=== PATIENT | female | born 1985 | race Caucasian/White ===

== ENCOUNTER 2018-04-25 19:51 | Emergency (ER) | payer MEDICAID ==
[2018-04-25 22:17] LABS: ADD MAN DIFF? NO
[2018-04-25 22:18] LABS: BASOPHILS % 0.3 % (0.0-2.0); EOSINOPHILS # 0.1 10^3/ul (0.0-0.5); EOSINOPHILS % 0.8 % (0.0-7.0); HEMATOCRIT 37.4 % (37.0-47.0); HEMOGLOBIN 12.4 g/dl (12.0-16.0); LYMPHOCYTES % 17.1 % (15.0-51.0); MEAN CORPUSCULAR HEMOGLOBIN 30.3 pg (29.0-33.0); MEAN CORPUSCULAR HGB CONC 33.2 g/dl (32.0-37.0); MEAN CORPUSCULAR VOLUME 91.4 fl (82.0-101.0); MEAN PLATELET VOLUME 11.1 fl (7.4-10.4); MONOCYTE # 0.6 10^3/ul (0.3-0.9); MONOCYTES % 5.1 % (0.0-11.0); NEUTROPHIL # 8.9 10^3/ul (1.6-7.5); NEUTROPHILS % 76.2 % (39.0-77.0); PLATELET COUNT 426 10^3/UL (140-415); RED BLOOD COUNT 4.09 10^6/ul (4.20-5.40)
[2018-04-25 22:18] LABS: WHITE BLOOD COUNT 11.6 10^3/ul (4.8-10.8)
[2018-04-25 22:37] LABS: ALANINE AMINOTRANSFERASE 15 IU/L (13-69); ALBUMIN/GLOBULIN RATIO 1.08; ALKALINE PHOSPHATASE 73 IU/L (42-121); ANION GAP 14 (5-13); ASPARTATE AMINO TRANSFERASE 18 IU/L (15-46); BLOOD UREA NITROGEN 6 mg/dl (7-20); CARBON DIOXIDE 22 mmol/L (21-31); CHLORIDE 104 mmol/L (97-110); CREATININE 0.47 mg/dl (0.44-1.00); Estimated GFR > 60 mL/min (>60); GLUCOSE 122 mg/dl (70-220); POTASSIUM 4.1 mmol/L (3.5-5.1); SODIUM 140 mmol/L (135-144); TOTAL PROTEIN 7.7 g/dl (6.1-8.1)
[2018-04-25 22:50] LABS: ADD UMIC YES; UR ASCORBIC ACID NEGATIVE (NEGATIVE); UR BACTERIA FEW /HPF (NONE SEEN); UR BILIRUBIN (Dip) NEGATIVE (NEGATIVE); UR BLOOD (Dip) 1+ mg/dL (NEGATIVE); UR CLARITY SLIGHTLY CLOUDY (CLEAR); UR COLOR YELLOW (YELLOW); UR GLUCOSE (Dip) NEGATIVE (NEGATIVE); UR KETONES (Dip) TRACE mg/dL (NEGATIVE); UR LEUKOCYTE ESTERASE (Dip) 3+ Leu/ul (NEGATIVE); UR NITRITE (Dip) NEGATIVE (NEGATIVE); UR RBC 7 /HPF (0-5); UR SPECIFIC GRAVITY (Dip) 1.015 (1.003-1.030); UR SQUAMOUS EPITHELIAL CELL FEW /HPF (FEW); UR TOTAL PROTEIN (Dip) NEGATIVE (NEGATIVE); UR UROBILINOGEN (Dip) NEGATIVE (NEGATIVE); UR WBC 5 /HPF (0-5)
== END 2018-04-26 00:29 | disposition home or self-care (01) ==
LOC: FTE 04-26 00:29
DX: O23.41 Unspecified infection of urinary tract in pregnancy, first trimester (principal); R10.2 Pelvic and perineal pain; Z3A.14 14 weeks gestation of pregnancy
CPT/HCPCS: 36415; 76805; 80053; 81001; 85025; 86900; 86901; 87086; 99284-25

== ENCOUNTER 2018-05-19 16:00 | Emergency (ER) | payer MEDICAID | END 2018-05-19 20:07 | disposition home or self-care (01) | LOC: FTE 16:00 | DX: O99.612 Diseases of the digestive system complicating pregnancy, second trimester (principal); K59.00 Constipation, unspecified; Z3A.17 17 weeks gestation of pregnancy | CPT/HCPCS: 99282; Z7502 ==

== ENCOUNTER 2018-06-22 15:52 | Outpatient (CLI) | payer MEDICAID ==
[2018-06-22 17:41] LABS: ADD UMIC YES; UR ASCORBIC ACID NEGATIVE (NEGATIVE); UR BACTERIA FEW /HPF (NONE SEEN); UR BILIRUBIN (Dip) NEGATIVE (NEGATIVE); UR BLOOD (Dip) 1+ mg/dL (NEGATIVE); UR CLARITY CLEAR (CLEAR); UR COLOR STRAW (YELLOW); UR GLUCOSE (Dip) NEGATIVE (NEGATIVE); UR KETONES (Dip) NEGATIVE (NEGATIVE); UR LEUKOCYTE ESTERASE (Dip) 3+ Leu/ul (NEGATIVE); UR NITRITE (Dip) NEGATIVE (NEGATIVE); UR RBC 6 /HPF (0-5); UR SPECIFIC GRAVITY (Dip) 1.003 (1.003-1.030); UR SQUAMOUS EPITHELIAL CELL FEW /HPF (FEW); UR TOTAL PROTEIN (Dip) NEGATIVE (NEGATIVE); UR UROBILINOGEN (Dip) NEGATIVE (NEGATIVE); UR WBC 1 /HPF (0-5)
== END 2018-06-22 21:15 | disposition home or self-care (01) ==
LOC: OBT 15:52 → L-D 15:53 → OBT 21:15
DX: O26.892 Other specified pregnancy related conditions, second trimester (principal); Z3A.22 22 weeks gestation of pregnancy; R10.2 Pelvic and perineal pain
CPT/HCPCS: 76815; 76817; 81001; 87086

== ENCOUNTER 2018-10-07 15:48 | Inpatient (IN) | payer MEDICAID ==
[2018-10-07 16:29] LABS: ADD MAN DIFF? NO
[2018-10-07 16:33] LABS: CREATININE,URINE RANDOM 54.68 mg/dl (20-320); PROTEIN/CREAT RATIO 0.67 RATIO
[2018-10-07 16:34] LABS: WHITE BLOOD COUNT 6.8 10^3/ul (4.8-10.8)
[2018-10-07 16:34] LABS: ABNORMAL IP MESSAGE 1; BASOPHILS % 0.1 % (0.0-2.0); EOSINOPHILS % 0.4 % (0.0-7.0); HEMATOCRIT 33.6 % (37.0-47.0); HEMOGLOBIN 11.1 g/dl (12.0-16.0); LYMPHOCYTES # 1.1 10^3/ul (0.8-2.9); LYMPHOCYTES % 16.4 % (15.0-51.0); MEAN CORPUSCULAR HEMOGLOBIN 28.8 pg (29.0-33.0); MEAN CORPUSCULAR VOLUME 87.3 fl (82.0-101.0); MEAN PLATELET VOLUME 13.1 fl (7.4-10.4); MONOCYTE # 0.5 10^3/ul (0.3-0.9); MONOCYTES % 7.9 % (0.0-11.0); NEUTROPHIL # 5.1 10^3/ul (1.6-7.5); NEUTROPHILS % 74.6 % (39.0-77.0); PLATELET COUNT 300 10^3/UL (140-415); RED BLOOD COUNT 3.85 10^6/ul (4.20-5.40)
[2018-10-07 16:35] LABS: POSITIVE DIFF @See below
[2018-10-07 16:51] LABS: ALANINE AMINOTRANSFERASE 14 IU/L (13-69); ALKALINE PHOSPHATASE 177 IU/L (42-121); ANION GAP 7 (5-13); ASPARTATE AMINO TRANSFERASE 20 IU/L (15-46); BILIRUBIN,INDIRECT 0.2 mg/dl (0-1.1); BILIRUBIN,TOTAL 0.2 mg/dl (0.2-1.3); BLOOD UREA NITROGEN 9 mg/dl (7-20); CALCIUM 8.7 mg/dl (8.4-10.2); CARBON DIOXIDE 18 mmol/L (21-31); CHLORIDE 113 mmol/L (97-110); CREATININE 0.49 mg/dl (0.44-1.00); Estimated GFR > 60 mL/min (>60); GLUCOSE 139 mg/dl (70-220); LACTATE DEHYDROGENASE 413 IU/L (313-618); POTASSIUM 3.9 mmol/L (3.5-5.1); SODIUM 138 mmol/L (135-144); TOTAL PROTEIN 6.3 g/dl (6.1-8.1); URIC ACID 4.2 mg/dl (3.1-7.9)
[2018-10-07 17:57] LABS: INR 0.95; PROTIME 12.8 Sec (11.9-14.9)
[2018-10-07 17:59] LABS: PARTIAL THROMBOPLASTIN TIME 27.7 Sec (23.0-35.0)
[2018-10-07] MEDS ORDERED: MISOPROSTOL 200 MCG TAB PR (18:00)
[2018-10-07] MEDS ORDERED: CARBOPROST 250 MCG INJ IM (18:00)
[2018-10-07] MEDS ORDERED: AZITHROMYCIN 500MG/NS (PMX) 250 ML IV (18:00)
[2018-10-07] MEDS ORDERED: OXYTOCIN 30 UNITS/LR 500 ML IV (18:00)
[2018-10-07] MEDS ORDERED: METHYLERGONOVINE 0.2 MG INJ IM (18:00)
[2018-10-07 18:31] LABS: HEPATITIS B SURFACE ANTIGEN NEGATIVE (NEGATIVE)
[2018-10-07] MEDS: LACTATED RINGER'S 1,000 ML IV ×2 (18:39→19:24)
[2018-10-07] MEDS: CEFAZOLIN 2 GM/50 ML (PMX) 50 ML IVPB (19:24)
[2018-10-07] MEDS ORDERED: ONDANSETRON 4 MG INJ (20:01)
[2018-10-07] MEDS ORDERED: DEXAMETHASONE 4 MG/ML 1 ML INJ ×2 (20:01)
[2018-10-07] MEDS ORDERED: morphine SULFATE/PF (10 MG/10 ML) INJ (20:04)
[2018-10-07] MEDS ORDERED: PHENYLephrine (100 MCG/ML) 10ML SYG (20:21)
[2018-10-07] MEDS ORDERED: MIDAZOLAM 1 MG/ML 2 ML INJ (20:49)
[2018-10-07] MEDS ORDERED: NALOXONE (0.4 MG/ML) INJ IV (21:00)
[2018-10-07] MEDS ORDERED: ZOLPIDEM 5 MG TAB PO (21:00)
[2018-10-07] MEDS ORDERED: ONDANSETRON 4 MG INJ IV (21:00)
[2018-10-07] MEDS ORDERED: HYDROmorphONE 0.5 MG/0.5 ML SYG IV ×2 (21:00)
[2018-10-07] MEDS: KETOROLAC 30 MG INJ IV (22:02)
[2018-10-07] MEDS: OXYTOCIN 30 UNITS/LR 500 ML IV (22:16)
[2018-10-08] MEDS: DEXTROSE 5%-LR 1,000 ML IV (01:36)
[2018-10-08] MEDS ORDERED: MAGNESIUM HYDROXIDE 30ML CUP PO (02:00)
[2018-10-08] MEDS ORDERED: METHYLERGONOVINE 0.2 MG INJ IM (02:00)
[2018-10-08] MEDS ORDERED: METHYLERGONOVINE 0.2 MG TAB PO (02:00)
[2018-10-08] MEDS ORDERED: OXYTOCIN 30 UNITS/LR 500 ML IV (02:00)
[2018-10-08] MEDS ORDERED: LANOLIN HPA 1 PKT TOP (02:00)
[2018-10-08] MEDS ORDERED: MISOPROSTOL 200 MCG TAB PR (02:00)
[2018-10-08] MEDS ORDERED: CARBOPROST 250 MCG INJ IM (02:00)
[2018-10-08] MEDS: OXYTOCIN 30 UNITS/LR 500 ML IV (02:23)
[2018-10-08] MEDS: DIPHENHYDRAMINE 50 MG INJ IV ×2 (04:32→14:53)
[2018-10-08] MEDS: KETOROLAC 30 MG INJ IV ×2 (06:14→13:55)
[2018-10-08] MEDS: ACCU-CHEK XX ×4 (07:35→21:15)
[2018-10-08 08:04] LABS: ADD MAN DIFF? NO
[2018-10-08 08:20] LABS: WHITE BLOOD COUNT 14.3 10^3/ul (4.8-10.8)
[2018-10-08 08:21] LABS: ABNORMAL IP MESSAGE 1; BASOPHILS % 0.1 % (0.0-2.0); HEMATOCRIT 30.5 % (37.0-47.0); LYMPHOCYTES # 1.2 10^3/ul (0.8-2.9); LYMPHOCYTES % 8.6 % (15.0-51.0); MEAN CORPUSCULAR HEMOGLOBIN 28.7 pg (29.0-33.0); MEAN CORPUSCULAR HGB CONC 32.8 g/dl (32.0-37.0); MEAN CORPUSCULAR VOLUME 87.4 fl (82.0-101.0); MEAN PLATELET VOLUME 13.5 fl (7.4-10.4); MONOCYTE # 0.8 10^3/ul (0.3-0.9); MONOCYTES % 5.4 % (0.0-11.0); NEUTROPHIL # 12.2 10^3/ul (1.6-7.5); NEUTROPHILS % 85.3 % (39.0-77.0); PLATELET COUNT 309 10^3/UL (140-415); RED BLOOD COUNT 3.49 10^6/ul (4.20-5.40); RED CELL DISTRIBUTION WIDTH 13.6 % (11.5-14.5)
[2018-10-08 08:22] LABS: POSITIVE DIFF @See below
[2018-10-08] MEDS: SENNA/DOCUSATE NA (8.6MG/50MG) TAB PO ×2 (08:37→20:35)
[2018-10-08] MEDS: metFORMIN (XR) 500 MG TAB PO ×2 (08:38→21:16)
[2018-10-08] MEDS ORDERED: DIPHTH/TET/ACEL PERTUSS (ADULT) 0.5 ML VIAL IM* (11:00)
[2018-10-08] MEDS: LACTATED RINGER'S 1,000 ML IV ×2 (12:39→20:30)
[2018-10-08] MEDS: HYDROCODONE/APAP (5/325) TAB PO ×2 (20:35→22:27)
[2018-10-08 22:27] LABS: RAPID PLASMA REAGIN NONREACTIVE (NR)
[2018-10-08] MEDS: IBUPROFEN 800 MG TAB PO (22:27)
[2018-10-09] MEDS: LACTATED RINGER'S 1,000 ML IV (04:30)
[2018-10-09] MEDS: IBUPROFEN 800 MG TAB PO ×3 (05:49→22:12)
[2018-10-09] MEDS: HYDROCODONE/APAP (5/325) TAB PO ×3 (05:49→22:12)
[2018-10-09] MEDS: SENNA/DOCUSATE NA (8.6MG/50MG) TAB PO ×2 (08:20→21:00)
[2018-10-09] MEDS: metFORMIN (XR) 500 MG TAB PO ×2 (08:20→21:00)
[2018-10-09] MEDS: ACCU-CHEK XX (21:01)
[2018-10-10] MEDS: IBUPROFEN 800 MG TAB PO ×2 (05:30→15:16)
[2018-10-10] MEDS: HYDROCODONE/APAP (5/325) TAB PO ×2 (05:30→12:09)
[2018-10-10] MEDS ORDERED: DIPHTH/TET/ACEL PERTUSS (ADULT) 0.5 ML VIAL IM* (09:00)
[2018-10-10] MEDS ORDERED: MEASLES,MUMPS,RUBELLA VACCINE INJ SC* (09:00)
[2018-10-10] MEDS: metFORMIN (XR) 500 MG TAB PO (09:09)
[2018-10-10] MEDS: SENNA/DOCUSATE NA (8.6MG/50MG) TAB PO (09:09)
== END 2018-10-10 19:30 | disposition home or self-care (01) | DRG 785 ==
LOC: OBT 15:48 → L-D 15:48 → OBT 17:25 → L-D 17:25 → PP1 23:55
PROC: 10D00Z1 Extraction of Products of Conception, Low, Open Approach (ICD-10-PCS; principal; 2018-10-07 19:30)
PROC: 0UB70ZZ Excision of Bilateral Fallopian Tubes, Open Approach (ICD-10-PCS; 2018-10-07 19:30)
DX: O24.424 Gestational diabetes mellitus in childbirth, insulin controlled (principal); O34.211 Maternal care for low transverse scar from previous cesarean delivery; O34.593 Maternal care for other abnormalities of gravid uterus, third trimester; O90.81 Anemia of the puerperium; D64.9 Anemia, unspecified; O94 Sequelae of complication of pregnancy, childbirth, and the puerperium; O99.214 Obesity complicating childbirth; Z30.2 Encounter for sterilization; Z3A.37 37 weeks gestation of pregnancy; Z37.0 Single live birth
CPT/HCPCS: 76815; 76818; 80053; 81003; 82570; 82962; 83615; 84560; 85025; 85610; 85730; 86592; 86850; 86900; 86901; 87340; 88302; 99464